=== PATIENT | female | born 1945 | race Caucasian/White ===

== ENCOUNTER 2018-04-06 09:29 | Inpatient (IN) | payer MEDICARE, OTHER ==
[2018-04-06] VITALS (12 sets, daily range): BP systolic 71–155; BP diastolic 40–136
[~2018-04-06] VITALS: Ht 157.5 cm; Wt 59.0 kg
[2018-04-06] MEDS ORDERED: ZOFRAN ODT8 MG ORAL (10:06)
[2018-04-06] MEDS ORDERED: COLACE100 MG ORAL (10:06)
[2018-04-06] MEDS ORDERED: SIMVASTATIN40 MG ORAL (10:06)
[2018-04-06] MEDS ORDERED: ACETAMINOPHEN325 M1 ORAL (10:06)
[2018-04-06] MEDS ORDERED: ASPIR 8181 MG ORAL (10:06)
[2018-04-06] MEDS ORDERED: BISACODYL10 M1 RC (10:06)
[2018-04-06] MEDS ORDERED: HEPARIN SO5000 UNIT2 SUBQ (10:06)
[2018-04-06] MEDS ORDERED: DONEPEZIL HCL10 M2 ORAL (10:06)
[2018-04-06] MEDS ORDERED: NAMENDA10 MG ORAL (10:06)
[2018-04-06] MEDS ORDERED: TOPROL XL ORAL (10:06)
[2018-04-06] MEDS ORDERED: ZYPREXA5 MG ORAL (10:06)
[2018-04-06] MEDS ORDERED: FLOMAX0.4 MG ORAL (10:06)
[2018-04-06] MEDS ORDERED: TRAMADOL HCL50 MG ORAL (10:06)
[2018-04-06 10:08] LABS: HEMATOCRIT 27.8 % (37.0-47.0); HEMOGLOBIN 9.1 G/DL (12.0-16.0); MEAN CORPUSCULAR VOLUME 91 FL (80-99); PLATELET COUNT 654 K/UL (150-450); RED BLOOD COUNT 3.05 M/UL (4.20-5.40); RED CELL DISTRIBUTION WIDTH 12.4 % (11.6-14.8); WHITE BLOOD COUNT 20.5 K/UL (4.8-10.8)
[2018-04-06 10:16] LABS: APPEARANCE,URINE CLOUDY; BILIRUBIN, URINE 1+ (NEGATIVE); GLUCOSE, URINE (UA) NEGATIVE (NEGATIVE); KETONES,URINE NEGATIVE (NEGATIVE); LEUKOCYTE ESTERASE ,URINE 3+ (NEGATIVE); NITRITE,URINE NEGATIVE (NEGATIVE); PH,URINE 5 (4.5-8.0); PROTEIN,URINE 2+ (NEGATIVE); UROBILINOGEN,URINE 1 MG/DL (0.0-1.0)
[2018-04-06 10:22] LABS: COLOR,URINE YELLOW
[2018-04-06 10:27] LABS: ANION GAP 17 mmol/L (5-15); BLOOD UREA NITROGEN 63 mg/dL (7-18); CALCIUM 8.5 MG/DL (8.5-10.1); CARBON DIOXIDE 21 MMOL/L (21-32); CHLORIDE 108 MMOL/L (98-107); CREATININE 2.7 MG/DL (0.55-1.30); POTASSIUM 4.5 MMOL/L (3.5-5.1); SODIUM 146 MMOL/L (136-145)
[2018-04-06] MEDS ORDERED: Isovue-300 100ml vial INJ PRN (10:30)
[2018-04-06] MEDS ORDERED: Piperacillin/Tazobactam 3.375 GM in NS 110 ML IVPB ONE (10:30)
[2018-04-06] MEDS ORDERED: Vancomycin 1 GM in NS 275 ML IVPB ONE (10:30)
[2018-04-06 10:34] LABS: ALANINE AMINOTRANSFERASE 123 U/L (12-78); ALBUMIN 2.3 G/DL (3.4-5.0); ALBUMIN/GLOBULIN RATIO 0.6 (1.0-2.7); ALKALINE PHOSPHATASE 159 U/L (46-116); ASPARTATE AMINO TRANSFERASE 97 U/L (15-37); BILIRUBIN,TOTAL 0.5 MG/DL (0.2-1.0); CREATINE KINASE 253 U/L (26-308)
--- NOTE | 2018-04-06 11:07 | Diagnostic Imaging Report ---
Indications: Altered mental status Technique: Spiral acquisitions obtained through the brain. Angled axial and coronal 5 x 5 mm slices were reconstructed. Total dose length product 1449.98 mGycm. CTDI vol(s) 70.38 mGy. Dose reduction achieved using automated exposure control Comparison: None. Findings: There is slight image degradation due to motion artifact. There is age-related enlargement of the ventricles and extra axial CSF spaces. There is periventricular deep white matter low-attenuation, consistent with chronic ischemic change. No acute intracranial hemorrhage nor edema, mass effect, nor midline shift. There is minimal sphenoid sinus disease on the right. Intact calvarium. The mastoids are clear. There is evidence of prior cataract surgery on the right. Impression: Chronic and age-related changes, as described. Negative for acute intracranial bleed or mass effect The CT scanner at [facility] is accredited by the [employer] and the scans are performed using protocols designed to limit radiation exposure to as low as reasonably achievable to attain images of sufficient resolution adequate for diagnostic evaluation.
--- NOTE | 2018-04-06 11:55 | Diagnostic Imaging Report ---
Indication: Abdominal pain Technique: Spiral acquisitions obtained through the abdomen and pelvis. No oral contrast utilized, per emergency room physician request No IV contrast utilized, per emergency room physician request.. Multiplanar reconstructions were generated. Total dose length product 729.72 mGycm. CTDIvol(s) 14.12 mGy. Dose reduction achieved using automated exposure control Comparison: None Findings: There is a right hip prosthesis. A few small gas bubbles are seen in the anterolateral right buttock/groin region musculature. Prosthesis throws off streak artifact which may obscure pathology. There is a right femoral central venous catheter in place, tip which projects at the level of the common iliac vein. Lack of enteric contrast limits assessment of the GI tract. The appendix is normal. There is no evidence of diverticulosis or diverticulitis. There are some mildly prominent fluid-filled small bowel loops, but no mesha small bowel distention. No free or loculated intraperitoneal gas or fluid is evident. There is a moderate to large sliding-type hiatal hernia. The remainder of the stomach is unremarkable. The duodenum is unremarkable. Lack of IV contrast limits assessment of the solid organs. The liver, gallbladder, bile ducts, pancreas are unremarkable. The spleen demonstrates a 7 mm fluid attenuation lesion laterally in the upper pole. The adrenals and kidneys are grossly unremarkable. No retroperitoneal or mesenteric mass or adenopathy. The bladder is empty, contains a Villatoro catheter. The uterus and right ovary are unremarkable. A 3.5 cm cystic-appearing lesion is seen in the left adnexa. Fairly extensive consolidation and atelectasis is seen in the visualized left lower lobe and lingula. Less extensive consolidation is seen in the right lower lobe and right middle lobe. There is some dependent atelectasis on the right as well. There is questionably trace pleural fluid on the left. There is trace pericardial thickening versus fluid. The heart size is upper limits of normal The bones demonstrate mild degenerative spondylosis changes. There is mild diffuse edema of the subcutaneous fat Impression: Limited assessment of the GI tract, due to absence of enteric contrast administration No definite acute abdominal or pelvic process Fairly extensive bilateral basilar pulmonary parenchymal consolidation, likely pneumonia, and atelectasis. Possible trace pleural fluid on the left Evidence of recent right hip surgery. Note that streak artifact from the hip prosthesis may obscure pathology Right groin central venous catheter A cystic-appearing left adnexal lesion measuring 3.5 cm is seen. In a late post-menopausal woman (>5 years since menopause), because of its size >3 cm, prompt evaluation with ultrasound is recommended. Diffuse edema of the subcutaneous fat Moderate to large sliding-type hiatal hernia Villatoro catheter Right groin central venous catheter Trace pericardial thickening versus fluid 7 mm splenic cyst Incidental finding of degenerative spondylosis Findings discussed by phone with Dr. Andino the time of interpretation Recommendations for adnexal lesion management based on Waylon, et al., J Am Minor Radiol 10:675-81 (2013). The CT scanner at [facility] is accredited by the [employer] and the scans are performed using protocols designed to limit radiation exposure to as low as reasonably achievable to attain images of sufficient resolution adequate for diagnostic evaluation.
--- NOTE | 2018-04-06 12:00 | Emergency Room Report ---
History of Present Illness General Chief Complaint: Altered Level of Consciousness Source: Family Member, Medical Record Present Illness HPI Patient presents from nursing facility with reports of change in mental status In discussing the case with the LOGGING ASSISTANT who was at the facility patient this morning was being fed by nursing staff at the facility There was an episode of possible choking and aspiration After the patient was seen by the LOGGING ASSISTANT the patient appeared to be unresponsive, drooling from the mouth labored breathing and therefore paramedics were summoned Patient has a DO NOT RESUSCITATE for no intubation and CPR however limited intervention is requested including antibiotics and other medication Upon arrival the patient is unresponsive, GCS is 3 Patient has labored respirations which improved minimally after acute suctioning is at bedside as well he does reiterate the patient's wishes, and reports that she has significant dementia does not want to have further CPR or mechanical ventilation Patient as of yesterday was apparently awake, interactive with the family However he does report that the patient has been deteriorating since her discharge from the hospital History of present illness is limited as the patient herself is not verbal Allergies: Coded Allergies: SULFA (SULFONAMIDE ANTIBIOTICS) (Verified Allergy, Unknown, 04/06/18) COPIED FROM UNCODED SECTION Uncoded Allergies: CHOCOLATE (Allergy, Unknown, 04/06/18) Patient History Limited by: medical condition Past Medical History: see triage record Pertinent Family History: unable to obtain Reviewed Nursing Documentation: PMH: Agreed; PSxH: Agreed Nursing Documentation-PMH Past Medical History: No History, Except For Hx Cardiac Problems: Yes - Anemia, NSTEMI Hx Pacemaker: No Hx Asthma: No Hx COPD: No Hx Diabetes: No Hx Cancer: No Hx Gastrointestinal Problems: Yes - GERD, dysphagia Hx Dialysis: No History Of Psychiatric Problem: Yes - Bipolar Hx Neurological Problems: Yes - dementia, Right hip replacement, muscle weakness, dysarthria, osteoarthrit Hx Cerebrovascular Accident: No Hx Seizures: No Review of Systems All Other Systems: limited - Other than the ones mentioned in the history of present illness all others are reviewed however they do stay limited due to the patient's mental status Physical Exam Vital Signs Date Time Temp Pulse Resp B/P (MAP) Pulse Ox O2 Delivery O2 Flow Rate FiO2 04/06/18 09:29 95.0 105 16 49/36 80 Non-Rebreather 15.0 95.0 04/06/18 11:49 100 Sp02 EP Interpretation: reviewed, normal General Appearance: severe distress - Respiratory distress Head: normocephalic, atraumatic Eyes: bilateral eye PERRL - Sluggish ENT: dry mucus membranes Neck: supple Respiratory: other - Patient appears in acute distress, there are retractions noted, crackles bilaterally Cardiovascular #1: tachycardia Gastrointestinal: soft Musculoskeletal: other - Patient is flaccid, there is no retraction or responds to physical stimuli Neurologic: other - Significantly decreased mentation Skin: other - Several areas of bruising and ecchymosis, skin abrasion avulsion right hand Lymphatic: no adenopathy Procedures Critical Care Time Critical Care Time 50 minutes for initial critical presentation, findings concerning for cardiac/ cardiopulmonary arrest and possible not including any procedural time Central Line Central Line : Consent: Emergent Central Line Lumen: triple Maximal Sterile Barrier Tech: yes cap, yes mask, yes sterile gown, yes sterile gloves, yes large sterile sheet, yes hand hygiene, yes chlorhexidine prep Central Line Postion: femoral (R) Complications: none Central Line Post Position: sutured Attempts: One Patient Tolerated: Well Complications: None Medical Decision Making Diagnostic Impression: Primary Impression: Septic shock Additional Impressions: Aspiration into airway DNR (do not resuscitate) ER Course Patient is a fairly complex patient with multiple differential to consideration including but not limited to cardiac cardiopulmonary and vascular emergencies Also neurological and infectious pathology entertained Patient's lactic acid is significantly elevated white blood cell count is high Patient is hypotensive meeting all criteria for septic shock Patient provided with saline bolus and spectrum antibiotics At this time significant amount of time is spent with family discussing patient' s no CPR and no intubation wishes Patient is placed on BiPAP Has poor prognosis and is admitted for further inpatient care Sepsis reexamination Time:10am VS refer to nursing note cvs:tachycardic respiratory: improved respiration peripheral pulses: 2+radial cap refill:<2 seconds skin exam: warm, dry, not mottled Labs Test 04/06/18 09:41 04/06/18 10:05 04/06/18 14:30 White Blood Count 20.5 K/UL (4.8-10.8) Red Blood Count 3.05 M/UL (4.20-5.40) Hemoglobin 9.1 G/DL (12.0-16.0) Hematocrit 27.8 % (37.0-47.0) Mean Corpuscular Volume 91 FL (80-99) Mean Corpuscular Hemoglobin 29.8 PG (27.0-31.0) Mean Corpuscular Hemoglobin Concent 32.7 G/DL (32.0-36.0) Red Cell Distribution Width 12.4 % (11.6-14.8) Platelet Count 654 K/UL (150-450) Mean Platelet Volume 4.6 FL (6.5-10.1) Neutrophils (%) (Auto) % (45.0-75.0) Lymphocytes (%) (Auto) % (20.0-45.0) Monocytes (%) (Auto) % (1.0-10.0) Eosinophils (%) (Auto) % (0.0-3.0) Basophils (%) (Auto) % (0.0-2.0) Differential Total Cells Counted 100 Neutrophils % (Manual) 87 % (45-75) Lymphocytes % (Manual) 8 % (20-45) Monocytes % (Manual) 5 % (1-10) Eosinophils % (Manual) 0 % (0-3) Basophils % (Manual) 0 % (0-2) Band Neutrophils 0 % (0-8) Platelet Estimate Increased Platelet Morphology Normal Hypochromasia 2+ Anisocytosis 1+ Spherocytes 1+ Urine Color Yellow Urine Appearance Cloudy Urine pH 5 (4.5-8.0) Urine Specific [place] 1.020 (1.005-1.035) Urine Protein 2+ (NEGATIVE) Urine Glucose (UA) Negative (NEGATIVE) Urine Ketones Negative (NEGATIVE) Urine Blood 5+ (NEGATIVE) Urine Nitrite Negative (NEGATIVE) Urine Bilirubin 1+ (NEGATIVE) Urine Ictotest Negative (NEGATIVE) Urine Urobilinogen 1 MG/DL (0.0-1.0) Urine Leukocyte Esterase 3+ (NEGATIVE) Urine RBC 20-30 /HPF (0 - 2) Urine WBC Tntc /HPF (0 - 2) Urine Squamous Epithelial Cells Occasional /LPF Urine Bacteria Moderate /HPF (NONE) Sodium Level 146 MMOL/L (136-145) Potassium Level 4.5 MMOL/L (3.5-5.1) Chloride Level 108 MMOL/L (98-107) Carbon Dioxide Level 21 MMOL/L (21-32) Anion Gap 17 mmol/L (5-15) Blood Urea Nitrogen 63 mg/dL (7-18) Creatinine 2.7 MG/DL (0.55-1.30) Estimat Glomerular Filtration Rate mL/min (>60) Glucose Level 239 MG/DL (74-106) Lactic Acid Level 9.60 mmol/L (0.4-2.0) 4.90 mmol/L (0.66-2.22) Calcium Level 8.5 MG/DL (8.5-10.1) Phosphorus Level 7.0 MG/DL (2.5-4.9) Magnesium Level 2.4 MG/DL (1.8-2.4) Total Bilirubin 0.5 MG/DL (0.2-1.0) Aspartate Amino Transf (AST/SGOT) 97 U/L (15-37) Alanine Aminotransferase (ALT/SGPT) 123 U/L (12-78) Alkaline Phosphatase 159 U/L (46-116) Total Creatine Kinase 253 U/L (26-308) Creatine Kinase MB 4.0 NG/ML (0.0-3.6) Creatine Kinase MB Relative Index 1.5 Troponin I 1.882 ng/mL (0.000-0.056) Pro-B-Type Natriuretic Peptide 45112 pg/mL (0-125) Total Protein 6.4 G/DL (6.4-8.2) Albumin 2.3 G/DL (3.4-5.0) Globulin 4.1 g/dL Albumin/Globulin Ratio 0.6 (1.0-2.7) Lipase 159 U/L (73-393) Arterial Blood pH 7.350 (7.350-7.450) Arterial Blood Partial Pressure CO2 37.8 mmHg (35.0-45.0) Arterial Blood Partial Pressure O2 147.2 mmHg (75.0-100.0) Arterial Blood HCO3 20.4 mmol/L (22.0-26.0) Arterial Blood Oxygen Saturation 97.9 % (95-100) Arterial Blood Base Excess -4.8 (-2-2) Gabriel Test Positive Rhythm Strip Diag. Results EP Interpretation: yes Rate: 110 Rhythm: no PVC's, no ectopy, other - Sinus tach Chest X-Ray Diagnostic Results Chest X-Ray Diagnostic Results : Chest X-Ray Ordered: Yes # of Views/Limited/Complete: 1 View Indication: Shortness of Breath EP Interpretation: Yes Interpretation: no pneumothorax, other - Bilateral atelectasis increased left lower lobe markings, heart size normal Impression: Other - Bilateral lower lobe infiltrate CT/MRI/US Diagnostic Results CT/MRI/US Diagnostic Results : Impression CT head no acute disease CT abdomen pelvisImpression: Limited assessment of the GI tract, due to absence of enteric contrast administration No definite acute abdominal or pelvic process Fairly extensive bilateral basilar pulmonary parenchymal consolidation, likely pneumonia, and atelectasis. Possible trace pleural fluid on the left Evidence of recent right hip surgery. Note that streak artifact from the hip prosthesis may obscure pathology Right groin central venous catheter A cystic-appearing left adnexal lesion measuring 3.5 cm is seen. In a late post-menopausal woman (>5 years since menopause), because of its size >3 cm, prompt evaluation with ultrasound is recommended. Diffuse edema of the subcutaneous fat Moderate to large sliding-type hiatal hernia Villatoro catheter Right groin central venous catheter Trace pericardial thickening versus fluid 7 mm splenic cyst Incidental finding of degenerative spondylosis Last Vital Signs Date Time Temp Pulse Resp B/P (MAP) Pulse Ox O2 Delivery O2 Flow Rate FiO2 04/06/18 11:51 107 35 Bi-pap 100 04/06/18 11:49 92 04/06/18 11:48 124/47 15.0 04/06/18 11:00 98.1 98.1 Status: improved Disposition: ADMITTED INPATIENT Condition: Critical Referrals: MICKI GALINDO (PCP) Giorgio Andino DO Apr 06, 2018 12:00
--- NOTE | 2018-04-06 12:22 | Diagnostic Imaging Report ---
Indication: Chest pain Technique: One view of the chest Comparison: none Findings: Consolidation is seen in the left perihilar region, left infrahilar region, and left lung base. Less extensive atelectasis and possible consolidation are seen in the right infrahilar region. There may be a small amount of pleural fluid on the left. The heart size is normal. Impression: Bilateral left greater than right consolidation and atelectasis, possible small left pleural effusion
--- NOTE | 2018-04-06 14:29 | History & Physical ---
History and Physical History & Physicial dict septic shock resp failure pneum UTI NSTEMI CHF dnar/dni abz bipap prognosis poor Steve Young MD Apr 06, 2018 14:29
[2018-04-06] MEDS ORDERED: Lidocaine 1% Plain 30 ml INJ PRN (15:00)
[2018-04-06] MEDS ORDERED: Heparin 2000 units/Ns 1000ml INJ PRN (15:00)
[2018-04-06] MEDS ORDERED: Piperacillin/Tazobactam 2.25 GM in D5W 110 ML IV SCH (18:00)
[2018-04-06] MEDS ORDERED: Dyna-Hex 2% Top Sol 2oz TOPIC SCH (20:00)
--- NOTE | 2018-04-06 21:15 | History and Physical Report ---
DATE OF ADMISSION: 04/06/2018 CHIEF COMPLAINT: Respiratory distress. HISTORY OF PRESENT ILLNESS: This 73-year-old woman was transferred from detention because of respiratory distress and low saturation. She was hypotensive when she arrived to the emergency department from her detention. She was placed on BiPAP and fluids and antibiotics were given for sepsis and pneumonia. PAST MEDICAL HISTORY: The patient was hospitalized recently at [facility] with right hip fracture and suffered [id number] MS. She was treated and underwent right hip hemiarthroplasty on 03/29/2018. She had avascular necrosis of the femoral head. She suffered postoperative acute kidney injury superimposed on chronic kidney disease and acute urinary retention. There is history of dementia, bipolar disorder, anemia, complex ovarian cyst, hyperlipidemia. ALLERGIES: Chocolate and sulfa. REVIEW OF SYSTEMS: Cannot be obtained. CODE STATUS: DNR according to discussion between the and the emergency physician. PHYSICAL EXAMINATION: VITAL SIGNS: The blood pressure was as low as 49/36 and presently she is hypotensive once again. She has sinus tachycardia. She is tachypneic on BiPAP by face mask. There is no fever. Saturation 88% on 100% oxygen. GENERAL: The patient is poorly responsive. SKIN: Warm and dry. HEENT: The head is normocephalic. NECK: No jugular venous distention. CHEST: Decreased breath sounds in the bases. CARDIAC: Rhythm is regular and rapid. There is a grade 2 systolic murmur. ABDOMEN: Soft and nontender. Liver and spleen not enlarged. EXTREMITIES: No clubbing, cyanosis, or edema. LABORATORY AND DIAGNOSTIC DATA: CT of the brain shows chronic changes. CT of the abdomen and pelvis shows the aforementioned adnexal complex cyst. Chest x-ray shows bibasilar consolidation. The white blood count is elevated at 20,500, hemoglobin is 9.1, platelets 654,000. Blood gas showed satisfactory results with some metabolic acidosis. Chemistry shows BUN is 63, creatinine 2.7, blood sugar 239, lactic acid is 9.6. Liver enzymes are elevated. Troponin is elevated at 1.8. Natriuretic peptide is elevated at 30,000. Urinalysis shows many white cells. IMPRESSIONS: 1. Septic shock. 2. Bilateral pneumonia. 3. Respiratory failure. 4. Urinary tract infection. 5. Dementia. 6. Acute on chronic kidney disease. 7. Hyperglycemia. 8. Congestive heart failure. 9. Acute MS. PLAN: The patient will be treated with vasopressors and antibiotics. Cardiology consultation has been requested. I will discuss her care with the family. The prognosis appears poor. Soledad Young M.D. DR: Humaira JOB#: [id number] CC: Joe Barbosa M.D.; Fax#: [phone] SOLEDAD YOUNG M.D. ; FAX#: [phone]
--- NOTE | 2018-04-07 10:06 | Discharge Summary ---
Discharge Summary Discharge Summary _ SUMMARY DATE OF ADMISSION: 04/06/2018 DATE OF EXPIRATION: 04/06/2018 REASON FOR ADMISSION: 73 years old female with past medical history of NSTEMI, anemia ,bipolar disorder, dysphagia, GERD, presented from the long-term facility after episode of choking ,possible aspiration with altered mental status, unresponsiveness and acute respiratory distress. Upon evaluation patient demonstrated labored breathing. Vital signs revealed severe hypotension, hypothermia, tachycardia, and hypoxemia. Patient initially was on 100% of non-rebreathing mask. Patient with DNR/DNI status. Central line was placed for pressors. Laboratory workup revealed leukocytosis with WBC 20.5, elevated lactic acid - 9.6. Elevated troponin 1.882. EKG revealed sinus tachycardia, no acute ischemic changes. Pro BNP 64166. BUN 63, creatinine 2.7. Elevated LFT: AST 97, ALT 123. Glucose 239. Urinalysis with evidence of UTI. CXR with bilateral, left greater than right, consolidation and atelectasis, possible small left pleural effusion. CT of the head revealed no acute intracranial pathology . CT of the abdomen and pelvis revealed no definite acute abdominal or pelvic process fairly extensive bilateral pulmonary parenchymal consolidation likely pneumonia and atelectasis . Family confirmed DO NOT RESUSCITATE status and no intubation. Saline bolus and broad-spectrum antibiotics provided started. Patient was placed on BiPAP . Patient with extremely poor prognosis, was admitted for further inpatient care to ICU. Patient admitted with diagnoses of septic shock , bilateral pneumonia, urinary tract infection, respiratory failure, acute on chronic kidney failure, dementia ,hyperglycemia ,congestive heart failure ,acute SD. HOSPITAL COURSE: Patient admitted to intensive care unit. Patient with DNR/DMI status. Patient started on pressor for hemodynamic support and empiric antibiotics. Cardiology consult was requested. Patient was placed on the BiPAP . Pulmonary toilet provided as needed. Prognosis was extremely poor. Unfortunately patient condition rapidly deteriorated . Patient and was pronounced at 17: . Cause of : cardiopulmonary arrest FINAL DIAGNOSES: septic shock with sepsis bilateral pneumonia urinary tract infection respiratory failure acute on chronic renal failure congestive heart failure acute SD hyperglycemia transaminitis dementia I have been assigned to dictate discharge summary for this account. I was not involved in the patient's management. Aurora Eckert NP Apr 07, 2018 10:06
--- NOTE | 2018-04-08 22:20 | Diagnostic Imaging Report ---
APPROVED REPORT CPT Code: 04711 Present Symptoms Comments: R/O DVT BILATERAL: Imaging reveals a patent deep venous system bilaterally. There is no evidence of thrombus within the femoral, popliteal or tibial segments. The greater saphenous veins are also within normal limits. Doppler indicates normal spontaneous flow within these segments.
== END 2018-04-06 19:39 | disposition expired | DRG 871 ==
LOC: EDSEX 09:29 → EDBD 09:29 → EMR 09:59 → ICU 10:14 → EDBEDREQ 10:47 → EDBEDREQSVC 10:51 → EDBEDREQ 11:04
PROC: 5A09357 Assistance with Respiratory Ventilation, Less than 24 Consecutive Hours, Continuous Positive Airway Pressure (ICD-10-PCS; principal; 2018-04-06)
DX: A41.9 Sepsis, unspecified organism (principal); R65.21 Severe sepsis with septic shock; J18.9 Pneumonia, unspecified organism; J96.90 Respiratory failure, unspecified, unspecified whether with hypoxia or hypercapnia; I21.9 Acute myocardial infarction, unspecified; N39.0 Urinary tract infection, site not specified; N17.9 Acute kidney failure, unspecified; N18.9 Chronic kidney disease, unspecified; R73.9 Hyperglycemia, unspecified; R74.0 Nonspecific elevation of levels of transaminase and lactic acid dehydrogenase [LDH]; F03.90 Unspecified dementia, unspecified severity, without behavioral disturbance, psychotic disturbance, mood disturbance, and anxiety; Z66 Do not resuscitate; E78.5 Hyperlipidemia, unspecified; Z88.2 Allergy status to sulfonamides
CPT/HCPCS: 36415; 36600; 70450; 71045; 74176; 80053; 81003; 82550; 82553; 82803; 83605; 83690; 83735; 83880; 84100; 84484; 85007; 85025; 86710; 87040; 87081; 87086; 87181; 93005; 93970; 94664; 96361; 96365; 96368; 96375; 99291